=== PATIENT | female | born 1950 ===

== ENCOUNTER 2017-11-18 21:57 | Emergency (ER) | payer OTHER ==
[2017-11-18 22:41] VITALS: BP 150/76; PULSE 75; RESP 20; TEMP 98.6; O2SAT 99
--- NOTE | 2017-11-19 00:22 | C.PDOC ---
History Of Present Illness 66 years old female presents to ED with complaints of having a cough and nasal congestion that began 2 weeks ago. Patient stated she started having a runny nose yesterday which prompted the visit. Seen by PMD yesterday and nothing was prescribed. Denies CP, SOB and fever. Patient states she did not take any medications for relief. Time Seen by Provider: 11/18/17 23:09 Chief Complaint (Nursing): Cough, Cold, Congestion History Per: Patient History/Exam Limitations: no limitations Onset/Duration Of Symptoms: Days (14) Current Symptoms Are (Timing): Still Present Location Of Pain: None Associated Symptoms: Cough, Nasal Congestion. denies: Fever, Sore Throat, Sputum, Nausea, Vomiting, Diarrhea Ear Symptoms: Bilateral: None Recent travel outside of the [place]: No Past Medical History Reviewed: Historical Data, Nursing Documentation, Vital Signs Vital Signs: Last Vital Signs Temp 98.6 F 11/18/17 22:37 Pulse 75 11/18/17 22:37 Resp 20 11/18/17 22:37 BP 150/76 11/18/17 22:37 Pulse Ox 99 11/19/17 02:38 - Medical History PMH: HTN Surgical History: No Surg Hx Family History: States: No Known Family Hx - Social History Hx Alcohol Use: No Hx Substance Use: No Review Of Systems Constitutional: Negative for: Fever, Chills ENT: Positive for: Nose Discharge, Nose Congestion Respiratory: Positive for: Cough Gastrointestinal: Negative for: Nausea, Vomiting, Abdominal Pain, Diarrhea Skin: Negative for: Rash Neurological: Negative for: Weakness, Numbness Psych: Negative for: Depression, Suicidal ideation Physical Exam - Physical Exam Appears: Well, Non-toxic, No Acute Distress Skin: Warm, Dry Head: Atraumatic, Normacephalic Eye(s): bilateral: Normal Inspection Ear(s): Bilateral: Normal Nose: No Discharge Oral Mucosa: Moist Throat: Normal, No Erythema, No Exudate Neck: Supple Chest: Symmetrical, No Tenderness Cardiovascular: Rhythm Regular Respiratory: Normal Breath Sounds, No Decreased Breath Sounds, No Rales, No Rhonchi, No Wheezing Neurological/Psych: Oriented x3, Normal Speech Gait: Steady ED Course And Treatment O2 Sat by Pulse Oximetry: 99 (Room air) Pulse Ox Interpretation: Normal - Radiology CXR: Interpreted by Me, Viewed By Me CXR Interpretation: Yes: No Acute Disease, Other (no change from peio) Progress Note: Ordered CXR; normal findings. Patient is in no distress and stable for discharge. Disposition Counseled Patient/Family Regarding: Diagnosis, Need For Followup, Rx Given - Disposition Referrals: Mary Prajapati MD [Staff Provider] - Disposition: HOME/ ROUTINE Disposition Time: 00:19 Condition: STABLE Additional Instructions: Please follow up with your doctor Take meds prescribed' Return to ER if worse Prescriptions: Benzonatate [Tessalon Perles] 100 mg PO BID #14 sgl Cetirizine HCl [Zyrtec] 10 mg PO DAILY #20 capsule Mometasone Furoate [Nasonex] 2 spray NS DAILY #1 bottle Instructions: Upper Respiratory Infection (ED) Forms: [employer] (Lithuanian) - Clinical Impression Clinical Impression: Upper respiratory infection - PA / SILK EXAMINER / Resident Statement MD/DO has reviewed & agrees with the documentation as recorded. - Scribe Statement The provider has reviewed the documentation as recorded by the Hiwot Lau All medical record entries made by the Vangieibshawna were at my direction and personally dictated by me. I have reviewed the chart and agree that the record accurately reflects my personal performance of the history, physical exam, medical decision making, and the department course for this patient. I have also personally directed, reviewed, and agree with the discharge instructions and disposition.
--- NOTE | 2017-11-19 10:52 | RAD ---
HISTORY: cough, congestion COMPARISON: Made with CT scan chest and chest radiograph both dated . TECHNIQUE: Chest PA and lateral FINDINGS: LUNGS: Re- demonstrated are increased/coarsened interstitial markings most pronounced underlying this patient's history of underlying interstitial fibrosis however superimposed bronchitis or developing interstitial infiltrates not completely excluded. Clinical correlation recommended. PLEURA: No significant pleural effusion identified. No pneumothorax apparent. CARDIOVASCULAR: Re- demonstrated R sternotomy wires and prosthetic valve unchanged. OSSEOUS STRUCTURES: No significant abnormalities. VISUALIZED UPPER ABDOMEN: Normal. OTHER FINDINGS: None. IMPRESSION: Re- demonstrated are increased/coarsened interstitial markings most pronounced underlying this patient's history of underlying interstitial fibrosis however superimposed bronchitis or developing interstitial infiltrates not completely excluded. Clinical correlation recommended.
== END 2017-11-19 00:26 | disposition home or self-care (01) ==
LOC: C.ER 21:57
DX: J06.9 Acute upper respiratory infection, unspecified (principal); I10 Essential (primary) hypertension

== ENCOUNTER 2018-06-26 18:05 | Emergency (ER) | payer OTHER ==
[2018-06-26 18:15] VITALS: RESP 18
--- NOTE | 2018-06-26 19:36 | C.PDOC ---
History Of Present Illness 67 y/o female reports to the emergency department with complaints of a diffuse urticarial rash around the neck, chest, and thigh regions. Patient states that it has been worsening over the past week. She denies any triggers such as new food, detergent, or shampoo. On arrival patient is speaking in complete sentences and tolerating own secretions. Otherwise patient denies any fever, chills, nausea, vomiting, itching, or SOB. Time Seen by Provider: 06/26/18 18:25 Chief Complaint (Nursing): Allergic Reaction History Per: Patient History/Exam Limitations: no limitations Onset/Duration Of Symptoms: Days Current Symptoms Are (Timing): Still Present Possible Cause: Unknown Associated Symptoms: Skin Rash Severity: None Pain Scale Rating Of: 0 Recent travel outside of the [place]: No Additional History Per: Patient Past Medical History Reviewed: Historical Data, Nursing Documentation, Vital Signs Vital Signs: Last Vital Signs Temp 98.6 F 06/26/18 21:48 Pulse 70 06/26/18 21:48 Resp 18 06/26/18 21:48 BP 159/79 H 06/26/18 21:48 Pulse Ox 100 06/26/18 21:48 - Medical History PMH: HTN Denies: Chronic Kidney Disease Family History: States: No Known Family Hx - Social History Hx Alcohol Use: No Hx Substance Use: No - Immunization History Hx Tetanus Toxoid Vaccination: No Hx Influenza Vaccination: No Hx Pneumococcal Vaccination: No Review Of Systems Constitutional: Negative for: Fever, Chills Cardiovascular: Negative for: Chest Pain Respiratory: Negative for: Shortness of Breath Gastrointestinal: Negative for: Nausea, Vomiting Skin: Positive for: Rash (urticarial rash around neck, chest, and thigh regions) Neurological: Negative for: Weakness, Numbness Physical Exam - Physical Exam Appears: Non-toxic, No Acute Distress Skin: Warm, Dry, Rash (diffusal urticarial rash around the neck, chest, and thigh regions) Head: Normacephalic Eye(s): bilateral: PERRL, EOMI Oral Mucosa: Moist Throat: No Erythema, No Exudate, Other (Oropharynx clear ) Neck: Trachea Midline, Supple Chest: Symmetrical Cardiovascular: Rhythm Regular Respiratory: No Rales, No Rhonchi, No Wheezing Gastrointestinal/Abdominal: Soft, No Tenderness, No Distention Extremity: Bilateral: Normal Color And Temperature Pulses: Left Dorsalis Pedis: Normal, Right Dorsalis Pedis: Normal Neurological/Psych: Oriented x3 Gait: Steady ED Course And Treatment O2 Sat by Pulse Oximetry: 99 (RA) Pulse Ox Interpretation: Normal Progress Note: Benadryl, Pepcid, solumedrol, and IV fluids administered. Reevaluation Time: 22:30 Reassessment Condition: Improved Medical Decision Making Medical Decision Making: Upon provider reevaluation patient is feeling better, is medically stable, and requires no further treatment in the ED at this time. Patient will be discharged home with Rx for prednisone, epipen . Counseling was provided and all questions were answered regarding diagnosis and need for follow up with the referred clinic. There is agreement to discharge plan. Return if symptoms persist or worsen. Disposition Counseled Patient/Family Regarding: Studies Performed, Diagnosis, Need For Followup, Rx Given - Disposition Referrals: [facility] [Outside] [facility] [Outside] Disposition: HOME/ ROUTINE Disposition Time: 19:36 Condition: FAIR Additional Instructions: Please return if symptoms recur. May also use benadryl, pepcid and claritin Prescriptions: Epinephrine [Epipen] 0.3 mg IJ ONCE PRN #2 auto.injct PRN Reason: Anaphylaxis Prednisone [Deltasone] 20 mg PO DAILY #5 tablet Instructions: Hives (DC), Skin Rash (DC) Forms: [employer] (Polish) Print Language: AFGHAN - Clinical Impression Clinical Impression: Urticaria, Allergic reaction - Scribe Statement The provider has reviewed the documentation as recorded by the Hiwot Galeana Provider Attestation: All medical record entries made by the Vangieibshawna were at my direction and personally dictated by me. I have reviewed the chart and agree that the record accurately reflects my personal performance of the history, physical exam, medical decision making, and the department course for this patient. I have also personally directed, reviewed, and agree with the discharge instructions and disposition.
[2018-06-26] MEDS ORDERED: DiphenhydrAMINE 50 mg/ml Inj IVP STA (19:47)
[2018-06-26] MEDS ORDERED: Sodium Chloride 0.9% 1,000 ML IV ONE (19:48)
[2018-06-26] MEDS ORDERED: DiphenhydrAMINE 50 mg/ml Inj ONE (20:04)
[2018-06-26] MEDS ORDERED: Sodium Chloride 0.9% 1,000 ML ONE (20:04)
[2018-06-26 23:00] VITALS: BP 152/77; PULSE 71; TEMP 97.9; O2SAT 100
== END 2018-06-26 23:00 | disposition home or self-care (01) ==
LOC: C.ER 18:05
DX: L50.0 Allergic urticaria (principal)
CPT/HCPCS: 96374; 96375; 99285; J1200; J2930; J7030